=== PATIENT | male | born 1965 | race Caucasian/White ===

== ENCOUNTER 2019-05-10 06:13 | Day surgery (SDC) | payer BC ==
[2019-05-08 14:05] LABS: ALBUMIN 3.8 g/dL (3.4-5.0); ANION GAP 8 mmol/L (5-15); CALCIUM 8.8 mg/dL (8.5-10.1); CHLORIDE 107 mmol/L (98-107); CREATININE 1.13 mg/dL (0.7-1.3)
[2019-05-08 14:07] LABS: ALKALINE PHOSPHATASE 68 U/L (45-117); BILIRUBIN,TOTAL 0.3 mg/dL (0.2-1.0); TOTAL PROTEIN 7.5 g/dL (6.4-8.2)
[2019-05-08 14:18] LABS: ALANINE AMINOTRANSFERASE 47 U/L (12-78)
[~2019-05-10] VITALS: Ht 177.8 cm; Wt 100.4 kg
[~2019-05-10 06:13] MED LIST: AMLO-150 PO; FENO160T PO; GLIM2TAB7 PO; LISI1TAB20 PO; METF500T17 PO; OMEP-110 PO; ROSU5TAB PO; fenofibrate PO
[2019-05-10] MEDS ORDERED: BUPIVACAINE/PF 0.5% ONE (06:40)
[2019-05-10] MEDS ORDERED: LIDOCAINE 1%, 20ML ONE (06:40)
[2019-05-10] MEDS ORDERED: LACTATED RINGERS 1,000 ML IV SCH (07:00)
[2019-05-10 07:01] VITALS: BP 147/95
[2019-05-10] MEDS ORDERED: PROPOFOL 10 MG/ML, 20ML ONE ×3 (07:20→07:55)
[2019-05-10] MEDS ORDERED: SODIUM CHLORIDE 0.9% PF 10ML ONE (07:44)
[2019-05-10] MEDS ORDERED: CEFAZOLIN 1,000 MG ONE ×2 (07:44)
[2019-05-10] MEDS ORDERED: LIDOCAINE 1%, 20ML INFIL ONE (07:58)
[2019-05-10] MEDS ORDERED: BUPIVACAINE/PF 0.5% INFIL ONE (07:58)
[2019-05-10] MEDS ORDERED: FENTANYL PF 100 MCG/2ML IV PRN (08:00)
[2019-05-10] MEDS ORDERED: OXYcodone 5 MG/5 ML ORAL.SOL UDC PO PRN (08:00)
[2019-05-10] MEDS ORDERED: MEPERIDINE/PF 25MG/ML,1ML IVPush PRN (08:00)
[2019-05-10] MEDS ORDERED: ACETAMINOPHEN 325 MG TABLET PO PRN (08:00)
[2019-05-10] MEDS ORDERED: HYDROmorphone 2 MG/ML, 1ML IVPush PRN (08:00)
[2019-05-10] MEDS ORDERED: hydrALAzine 20 MG/ML, 1ML IV PRN (08:00)
[2019-05-10] MEDS ORDERED: LABETALOL 5MG/ML, 20ML IV PRN (08:00)
[2019-05-10] MEDS ORDERED: ONDANSETRON 2MG/ML, 2ML IV PRN (08:00)
== END 2019-05-10 10:15 | disposition home or self-care (01) ==
LOC: OUT 06:13
PROVIDERS: ATTEND Orthopaedic Surgery
DX: G56.02 Carpal tunnel syndrome, left upper limb (principal); I10 Essential (primary) hypertension; E11.9 Type 2 diabetes mellitus without complications; K21.9 Gastro-esophageal reflux disease without esophagitis; Z79.84 Long term (current) use of oral hypoglycemic drugs; Z79.899 Other long term (current) drug therapy
CPT/HCPCS: 36415; 64721; 80053; 82962; 93005; J0690; J2704; J7120